=== PATIENT | male | born 1950 | race Caucasian/White ===

== ENCOUNTER 2016-06-12 09:38 | Inpatient (IN) | payer MEDICAID, OTHER ==
[~2016-06-12] VITALS: Ht 167.6 cm; Wt 81.6 kg
[2016-06-12 09:40] VITALS: BP 185/88; PULSE 79; RESP 16; TEMP 98.3; O2SAT 87
[2016-06-12 10:42] LABS: HEMATOCRIT 31.6 % (36-54); HEMOGLOBIN 10.8 g/dL (14.0-18.0); MEAN CORPUSCULAR HEMOGLOBIN 29 pg (27-31); MEAN CORPUSCULAR HGB CONC 34 % (32-36); MEAN CORPUSCULAR VOLUME 83 fL (79.0-98.0); PLATELET COUNT (AUTO) 410 K/uL (130-430); RED BLOOD CELL COUNT(AUTO) 3.79 MIL/uL (4.2-6.2); RED CELL DISTRIBUTION WIDTH 13.4 % (9.0-15.0); WHITE BLOOD COUNT (AUTO) 19.3 K/uL (4.8-10.8)
[2016-06-12 10:45] LABS: ABG TOTAL HEMOGLOBIN 11.6 G/dL (12.0-18.0); BLOOD GAS BASE EXCESS 1.1 mmol/L (-3.0-3.0); BLOOD GAS PH 7.433 (7.350-7.450)
[2016-06-12] MEDS ORDERED: ALBUTEROL SULFATE 0.083% 2.5 MG/3 ML VIAL.NEB INH ONE ×2 (10:45→12:00)
[2016-06-12 10:46] LABS: BLOOD GAS COHb% 0.4 % (0.5-1.5); BLOOD GAS HHB 17.2 % (0.0-6.0); BLOOD O2Hb% 81.9 % (94.0-97.0)
[2016-06-12 10:51] LABS: ANION GAP 5 (5-15); CALCIUM 8.2 mg/dL (8.4-11.0); CHLORIDE 100 mmol/L (98-107); CREATININE 1.11 mg/dL (0.55-1.30); GLUCOSE 347 mg/dL (70-99); POTASSIUM 3.6 mmol/L (3.5-5.1); SODIUM SERUM 133 mmol/L (136-145); UREA NITROGEN, BLOOD 14 mg/dL (8-21)
[2016-06-12 10:53] LABS: GFR AFRICAN AMERICAN 86 mL/min (>90); INR 0.9 (0.80-1.20)
[2016-06-12 10:58] LABS: BAND % (MANUAL) 19 % (0-6); BASOPHILS % (MANUAL) 0 % (0-2); EOSINOPHILS % (MANUAL) 0 % (0-7); LYMPHOCYTES % (MANUAL) 9 % (20-46); MONOCYTES % (MANUAL) 4 % (0-11)
[2016-06-12 11:07] LABS: ALANINE AMINOTRANSFERASE 30 U/L (12-78); ALBUMIN 2.9 g/dL (3.4-4.8); ASPARTATE AMINOTRANSFERASE 22 U/L (10-37); TOTAL BILIRUBIN 0.3 mg/dL (0.0-1.0); TOTAL PROTEIN, SERUM 7.4 g/dL (6.4-8.3)
[2016-06-12 11:11] LABS: ALCOHOL, BLOOD < 3 mg/dL (<10)
[2016-06-12 12:35] LABS: BILIRUBIN,URINE NEGATIVE (NEGATIVE); CLARITY/URINE CLEAR (CLEAR); COLOR,URINE YELLOW (YELLOW); GLUCOSE,URINE 3+ (NEGATIVE); KETONES,URINE NEGATIVE (NEGATIVE); LEUKOCYTE ESTERASE ,URINE NEGATIVE (NEGATIVE); NITRITE, URINE NEGATIVE (NEGATIVE); PH,URINE 5.5 (5.0-8.0); PROTEIN URINE NEGATIVE (NEGATIVE); UROBILINOGEN,URINE 0.2 (0.2-1.0)
[2016-06-12 12:44] LABS: BLOOD, URINE TRACE (NEGATIVE)
[2016-06-12 12:46] LABS: BARBITURATE, URINE NEGATIVE (NEG <=200); BENZODIAZEPINE, URINE NEGATIVE (NEG <=150); CANNABINOID, URINE NEGATIVE (NEG <=50); COCAINE, URINE NEGATIVE (NEG <=150); METHAMPHETAMINES SCREEN,URINE NEGATIVE (NEG <=500); OPIATE, URINE NEGATIVE (NEG <=100); PHENCYCLIDINE SCREEN,URINE NEGATIVE (NEG <=25); UR TRICYCLIC ANTIDEPRESSANTS NEGATIVE (NEG <=300); URINE AMPHETAMINE NEGATIVE (NEG <=500); URINE METHADONE NEGATIVE (NEG <=200); URINE OXYCODONE SCREEN NEGATIVE (NEG <=100); URINE PROPOXYPHENE SCREEN NEGATIVE (NEG <=300)
[2016-06-12 12:48] LABS: BACTERIA,URINE FEW /HPF (None Seen); RBC,URINE 0-3 /HPF (0-3); WBC,URINE 0-3 /HPF (0-3)
[2016-06-12 12:49] LABS: MUCUS,URINE None Seen /LPF (None Seen)
[2016-06-12] MEDS ORDERED: NACL 0.9% 1,000 ML IV ONE ×2 (13:00→13:15)
[2016-06-12 13:28] VITALS: BP 150/73; PULSE 115; RESP 18; TEMP 98.7; O2SAT 95
[2016-06-12] MEDS ORDERED: ASPIRIN 81 MG TAB.CHEW PO ONE (13:30)
[2016-06-12] MEDS ORDERED: ENOXAPARIN SODIUM 40 MG/0.4 ML SYRINGE SUBCUT ONE (13:30)
[2016-06-12] MEDS ORDERED: FLU VACC QS 2016-17(36MOS+)/PF 0.5 ML/SYR SYRINGE I.M. PRN (14:00)
[2016-06-12] MEDS ORDERED: PIPERACILLIN/TAZO 2.25G/DEX-IS 50 ML IV SCH (14:00)
[2016-06-12] MEDS ORDERED: DOCUSATE SODIUM 100 MG CAPSULE PO PRN (15:15)
[2016-06-12] MEDS ORDERED: LORazepam 2 MG/ML VIAL IVP PRN (15:15)
[2016-06-12] MEDS ORDERED: ACETAMINOPHEN 325 MG TABLET PO PRN (15:15)
[2016-06-12] MEDS ORDERED: ONDANSETRON HCL 4 MG/2 ML VIAL IVP PRN (15:15)
[2016-06-12] MEDS ORDERED: ZOLPIDEM TARTRATE 5 MG TABLET PO PRN (15:15)
[2016-06-12] MEDS ORDERED: POTASSIUM CHLORIDE 10 MEQ TAB.PRT.SR PO PRN (15:15)
[2016-06-12] MEDS ORDERED: MAGNESIUM SULFATE 50 ML IV PRN (15:15)
[2016-06-12] MEDS ORDERED: MORPHINE 2 MG/ML INJ. SYRINGE IVP PRN (15:15)
[2016-06-12] MEDS: IPRATROPIUM/ALBUTEROL SULFATE 3 ML AMPUL.NEB INH SCH ×2 (15:27→20:17)
[2016-06-12 15:36] VITALS: BP 150/73; PULSE 115
[2016-06-12] MEDS: NACL 0.9% 1,000 ML IV SCH (16:29)
[2016-06-12 16:32] VITALS: BP 144/76; PULSE 105; RESP 16; TEMP 98.5; O2SAT 94
[2016-06-12] MEDS: PIPERACILLIN/TAZO 3.375/DEX-IS 50 ML IV SCH ×2 (17:31→23:38)
[2016-06-12] MEDS ORDERED: LEVOFLOXACIN 500 MG/D5W 100 ML IV ONE (18:15)
[2016-06-12] MEDS: VANCOMYCIN HCL 1,250 MG in NS 250 ML IV SCH (18:20)
[2016-06-12 19:55] VITALS: BP 153/78; PULSE 97; RESP 18; TEMP 99; O2SAT 97
[2016-06-12] MEDS: LACTOBACILLUS RHAMNOSUS GG 1 CAP CAPSULE PO SCH (20:39)
[2016-06-12 23:56] VITALS: BP 150/87; PULSE 96; RESP 18; TEMP 99.2; O2SAT 92
[2016-06-13] MEDS: NACL 0.9% 1,000 ML IV SCH ×3 (01:30→14:35)
[2016-06-13 04:02] VITALS: BP 150/86; PULSE 96; RESP 20; TEMP 98.5; O2SAT 96
[2016-06-13] MEDS: VANCOMYCIN HCL 1,250 MG in NS 250 ML IV SCH ×2 (04:04→17:42)
[2016-06-13] MEDS: PIPERACILLIN/TAZO 3.375/DEX-IS 50 ML IV SCH (06:05)
[2016-06-13] MEDS: IPRATROPIUM/ALBUTEROL SULFATE 3 ML AMPUL.NEB INH SCH ×3 (07:01→21:08)
[2016-06-13 07:42] LABS: CALCIUM 8.4 mg/dL (8.4-11.0); CREATININE 1.18 mg/dL (0.55-1.30); POTASSIUM 4.1 mmol/L (3.5-5.1)
[2016-06-13 07:44] LABS: BASOPHILS % (AUTO) 0.1 % (0.0-2.0); HEMOGLOBIN 8.9 g/dL (14.0-18.0); LYMPHOCYTES % (AUTO) 4.7 % (20.5-51.5); MEAN CORPUSCULAR HEMOGLOBIN 28 pg (27-31); MEAN CORPUSCULAR HGB CONC 33 % (32-36); MEAN CORPUSCULAR VOLUME 83 fL (79.0-98.0); MONOCYTES # (AUTO) 1.6 K/uL (0.0-1.0); MONOCYTES % (AUTO) 7.4 % (1.7-9.3); NEUTROPHILS # (AUTO) 18.5 K/uL (1.8-7.7); PLATELET COUNT (AUTO) 362 K/uL (130-430); RED BLOOD CELL COUNT(AUTO) 3.23 MIL/uL (4.2-6.2); RED CELL DISTRIBUTION WIDTH 13.5 % (9.0-15.0); WHITE BLOOD COUNT (AUTO) 21.1 K/uL (4.8-10.8)
[2016-06-13 08:00] VITALS: BP 150/73; PULSE 83; RESP 16; TEMP 98.8; O2SAT 100
[2016-06-13] MEDS ORDERED: DEXTROSE 50% JECT 50 ML DISP.SYRIN IVP PRN (08:15)
[2016-06-13] MEDS ORDERED: NA PHOS,M-B/NA PHOS,DI-BA 118 ML (FLEET ENEMA) RC ONE (08:15)
[2016-06-13] MEDS: ASPIRIN 81 MG TAB.CHEW PO SCH (09:45)
[2016-06-13] MEDS: BISACODYL 5 MG TABLET.DR (DULCOLAX) PO SCH ×2 (09:45→09:47)
[2016-06-13] MEDS: POLYETHYLENE GLYCOL 3350, 17 GM/ POWD.PACK PO SCH ×2 (09:45→09:46)
[2016-06-13] MEDS: LACTOBACILLUS RHAMNOSUS GG 1 CAP CAPSULE PO SCH ×2 (09:45→20:48)
[2016-06-13] MEDS: ENOXAPARIN SODIUM 40 MG/0.4 ML SYRINGE SUBCUT SCH (09:45)
[2016-06-13] MEDS: LISINOPRIL 10 MG TABLET (PRINIVIL) PO SCH (09:45)
[2016-06-13] MEDS: INSULIN ASPART 100 UNITS/ML, 10 ML VIAL (NovoLOG) SUBCUT PRN ×4 (10:08→21:00)
[2016-06-13 10:19] LABS: NEUTROPHILS % (AUTO) 87.8 % (40.0-70.0)
[2016-06-13 11:14] VITALS: Ht 167.6 cm; Wt 81.6 kg
[2016-06-13 12:41] VITALS: BP 167/68; PULSE 86; RESP 20; TEMP 97.4; O2SAT 97
[2016-06-13] MEDS ORDERED: FUROSEMIDE 20 MG/2 ML VIAL IVP ONE (13:45)
[2016-06-13] MEDS: metroNIDAZOLE 500 mg/NS 100 ML IV SCH ×2 (14:35→22:06)
[2016-06-13 16:28] VITALS: BP 155/68; PULSE 79; RESP 18; TEMP 98; O2SAT 98
[2016-06-13 19:56] VITALS: BP 162/90; PULSE 90; RESP 18; TEMP 98.6; O2SAT 92
[2016-06-13] MEDS: LEVOFLOXACIN 500 MG/D5W 100 ML IV SCH (20:47)
[2016-06-14] MEDS ORDERED: METOPROLOL TARTRATE 50 MG TABLET PO ONE (00:15)
[2016-06-14 00:37] VITALS: BP 174/97; PULSE 92; RESP 20; TEMP 99.4; O2SAT 100
[2016-06-14] MEDS: VANCOMYCIN HCL 1,250 MG in NS 250 ML IV SCH (04:40)
[2016-06-14 04:54] VITALS: BP 155/82; PULSE 84; RESP 18; TEMP 98.2; O2SAT 93
[2016-06-14] MEDS: metroNIDAZOLE 500 mg/NS 100 ML IV SCH ×3 (06:32→21:36)
[2016-06-14 07:34] LABS: BASOPHILS % (AUTO) 0.2 % (0.0-2.0); CREATININE 1.03 mg/dL (0.55-1.30); EOSINOPHILS # (AUTO) 0.3 K/uL (0.0-0.4); EOSINOPHILS % (AUTO) 1.8 % (0.0-4.0); HEMOGLOBIN 9.1 g/dL (14.0-18.0); LYMPHOCYTES # (AUTO) 1.2 K/uL (1.0-5.5); LYMPHOCYTES % (AUTO) 7.1 % (20.5-51.5); MEAN CORPUSCULAR HEMOGLOBIN 28 pg (27-31); MEAN CORPUSCULAR HGB CONC 34 % (32-36); MEAN CORPUSCULAR VOLUME 84 fL (79.0-98.0); MONOCYTES # (AUTO) 1.3 K/uL (0.0-1.0); MONOCYTES % (AUTO) 8.2 % (1.7-9.3); NEUTROPHILS # (AUTO) 13.5 K/uL (1.8-7.7); NEUTROPHILS % (AUTO) 82.7 % (40.0-70.0); PLATELET COUNT (AUTO) 358 K/uL (130-430); POTASSIUM 4.1 mmol/L (3.5-5.1); RED BLOOD CELL COUNT(AUTO) 3.24 MIL/uL (4.2-6.2); RED CELL DISTRIBUTION WIDTH 13.7 % (9.0-15.0); WHITE BLOOD COUNT (AUTO) 16.3 K/uL (4.8-10.8)
[2016-06-14] MEDS: IPRATROPIUM/ALBUTEROL SULFATE 3 ML AMPUL.NEB INH SCH ×3 (07:55→23:41)
[2016-06-14 08:00] VITALS: BP 151/81; PULSE 92; RESP 18; TEMP 98.1; O2SAT 92
[2016-06-14 08:06] LABS: CALCIUM 8.3 mg/dL (8.4-11.0)
[2016-06-14] MEDS: ENOXAPARIN SODIUM 40 MG/0.4 ML SYRINGE SUBCUT SCH (09:30)
[2016-06-14] MEDS: POLYETHYLENE GLYCOL 3350, 17 GM/ POWD.PACK PO SCH (09:31)
[2016-06-14] MEDS: BISACODYL 5 MG TABLET.DR (DULCOLAX) PO SCH (09:31)
[2016-06-14] MEDS: ASPIRIN 81 MG TAB.CHEW PO SCH (09:31)
[2016-06-14] MEDS: METOPROLOL TARTRATE 50 MG TABLET PO SCH ×2 (09:32→20:48)
[2016-06-14] MEDS: LISINOPRIL 10 MG TABLET (PRINIVIL) PO SCH ×2 (09:32→20:47)
[2016-06-14] MEDS: LACTOBACILLUS RHAMNOSUS GG 1 CAP CAPSULE PO SCH ×2 (09:32→20:47)
[2016-06-14] MEDS: NACL 0.9% 1,000 ML IV SCH (09:35)
[2016-06-14] MEDS: INSULIN ASPART 100 UNITS/ML, 10 ML VIAL (NovoLOG) SUBCUT PRN ×2 (11:30→20:51)
[2016-06-14 12:40] VITALS: BP 174/94; PULSE 77; RESP 18; TEMP 97.9; O2SAT 91
[2016-06-14] MEDS: cloNIDine HCL 0.1 MG TABLET PO PRN (13:01)
[2016-06-14] MEDS ORDERED: FUROSEMIDE 20 MG/2 ML VIAL IVP ONE (14:45)
[2016-06-14 17:00] VITALS: BP 162/86; PULSE 81; RESP 19; TEMP 97.9; O2SAT 98
[2016-06-14 19:30] VITALS: BP_SYST 132; BP_SYST 162; BP_DIAS 79; BP_DIAS 90; PULSE 80; PULSE 84; RESP 18; RESP 20; TEMP 98; O2SAT 96
[2016-06-14] MEDS: QUEtiapine FUMARATE 25 MG TABLET PO SCH (20:48)
[2016-06-14] MEDS: LEVOFLOXACIN 500 MG/D5W 100 ML IV SCH (21:36)
[2016-06-15] VITALS (7 sets, daily range): BP systolic 148–165; BP diastolic 80–91; PULSE 80–92; RESP 14–19; TEMP 97.4–98.8; O2SAT 95–100
[2016-06-15] MEDS: metroNIDAZOLE 500 mg/NS 100 ML IV SCH ×3 (06:39→22:18)
[2016-06-15 07:23] LABS: BASOPHILS % (AUTO) 0.4 % (0.0-2.0); EOSINOPHILS # (AUTO) 0.3 K/uL (0.0-0.4); EOSINOPHILS % (AUTO) 2.9 % (0.0-4.0); HEMATOCRIT 28.6 % (36-54); HEMOGLOBIN 9.3 g/dL (14.0-18.0); LYMPHOCYTES # (AUTO) 1.1 K/uL (1.0-5.5); LYMPHOCYTES % (AUTO) 11.7 % (20.5-51.5); MEAN CORPUSCULAR HEMOGLOBIN 27 pg (27-31); MEAN CORPUSCULAR HGB CONC 32 % (32-36); MEAN CORPUSCULAR VOLUME 85 fL (79.0-98.0); MONOCYTES # (AUTO) 0.8 K/uL (0.0-1.0); MONOCYTES % (AUTO) 8.2 % (1.7-9.3); NEUTROPHILS # (AUTO) 7.6 K/uL (1.8-7.7); NEUTROPHILS % (AUTO) 76.8 % (40.0-70.0); PLATELET COUNT (AUTO) 382 K/uL (130-430); RED BLOOD CELL COUNT(AUTO) 3.38 MIL/uL (4.2-6.2); RED CELL DISTRIBUTION WIDTH 13.5 % (9.0-15.0); WHITE BLOOD COUNT (AUTO) 9.8 K/uL (4.8-10.8)
[2016-06-15] MEDS: IPRATROPIUM/ALBUTEROL SULFATE 3 ML AMPUL.NEB INH SCH ×3 (07:32→23:32)
[2016-06-15 07:35] LABS: CALCIUM 8.5 mg/dL (8.4-11.0); CREATININE 0.97 mg/dL (0.55-1.30); POTASSIUM 3.9 mmol/L (3.5-5.1)
[2016-06-15] MEDS: BISACODYL 5 MG TABLET.DR (DULCOLAX) PO SCH (08:19)
[2016-06-15] MEDS: ASPIRIN 81 MG TAB.CHEW PO SCH (08:19)
[2016-06-15] MEDS: LISINOPRIL 10 MG TABLET (PRINIVIL) PO SCH ×2 (08:20→20:48)
[2016-06-15] MEDS: QUEtiapine FUMARATE 25 MG TABLET PO SCH ×2 (08:20→20:47)
[2016-06-15] MEDS: METOPROLOL TARTRATE 50 MG TABLET PO SCH ×2 (08:20→20:48)
[2016-06-15] MEDS: ENOXAPARIN SODIUM 40 MG/0.4 ML SYRINGE SUBCUT SCH (08:21)
[2016-06-15] MEDS: POLYETHYLENE GLYCOL 3350, 17 GM/ POWD.PACK PO SCH (08:21)
[2016-06-15] MEDS: LACTOBACILLUS RHAMNOSUS GG 1 CAP CAPSULE PO SCH ×2 (08:21→20:47)
[2016-06-15] MEDS ORDERED: FUROSEMIDE 20 MG/2 ML VIAL IVP ONE (10:15)
[2016-06-15] MEDS: INSULIN ASPART 100 UNITS/ML, 10 ML VIAL (NovoLOG) SUBCUT PRN ×3 (11:13→21:11)
[2016-06-15] MEDS: LEVOFLOXACIN 500 MG/D5W 100 ML IV SCH (20:47)
[2016-06-16] VITALS (7 sets, daily range): BP systolic 153–185; BP diastolic 69–108; PULSE 64–87; RESP 16–22; TEMP 97.1–99; O2SAT 91–94
[2016-06-16] MEDS: cloNIDine HCL 0.1 MG TABLET PO PRN ×2 (03:09→16:31)
[2016-06-16] MEDS: metroNIDAZOLE 500 mg/NS 100 ML IV SCH ×3 (05:42→22:00)
[2016-06-16 06:47] LABS: CALCIUM 8.3 mg/dL (8.4-11.0); CREATININE 1.07 mg/dL (0.55-1.30); POTASSIUM 3.9 mmol/L (3.5-5.1)
[2016-06-16 06:48] LABS: BASOPHILS # (AUTO) 0.1 K/uL (0.0-0.2); BASOPHILS % (AUTO) 0.8 % (0.0-2.0); EOSINOPHILS # (AUTO) 0.3 K/uL (0.0-0.4); EOSINOPHILS % (AUTO) 4.1 % (0.0-4.0); HEMATOCRIT 27.9 % (36-54); HEMOGLOBIN 9.1 g/dL (14.0-18.0); LYMPHOCYTES # (AUTO) 1.4 K/uL (1.0-5.5); MEAN CORPUSCULAR HEMOGLOBIN 27 pg (27-31); MEAN CORPUSCULAR HGB CONC 33 % (32-36); MEAN CORPUSCULAR VOLUME 84 fL (79.0-98.0); MONOCYTES # (AUTO) 0.9 K/uL (0.0-1.0); MONOCYTES % (AUTO) 11.1 % (1.7-9.3); NEUTROPHILS # (AUTO) 5.5 K/uL (1.8-7.7); PLATELET COUNT (AUTO) 393 K/uL (130-430); RED BLOOD CELL COUNT(AUTO) 3.32 MIL/uL (4.2-6.2); RED CELL DISTRIBUTION WIDTH 13.8 % (9.0-15.0); WHITE BLOOD COUNT (AUTO) 8.2 K/uL (4.8-10.8)
[2016-06-16] MEDS: IPRATROPIUM/ALBUTEROL SULFATE 3 ML AMPUL.NEB INH SCH ×2 (07:00→15:00)
[2016-06-16] MEDS ORDERED: FUROSEMIDE 20 MG/2 ML VIAL IVP ONE (08:30)
[2016-06-16] MEDS: POLYETHYLENE GLYCOL 3350, 17 GM/ POWD.PACK PO SCH (08:31)
[2016-06-16] MEDS: LACTOBACILLUS RHAMNOSUS GG 1 CAP CAPSULE PO SCH ×2 (08:31→21:27)
[2016-06-16] MEDS: ENOXAPARIN SODIUM 40 MG/0.4 ML SYRINGE SUBCUT SCH ×3 (08:31→09:00)
[2016-06-16] MEDS: QUEtiapine FUMARATE 25 MG TABLET PO SCH ×2 (08:32→21:27)
[2016-06-16] MEDS: BISACODYL 5 MG TABLET.DR (DULCOLAX) PO SCH (08:32)
[2016-06-16] MEDS: LISINOPRIL 10 MG TABLET (PRINIVIL) PO SCH ×2 (08:32→21:28)
[2016-06-16] MEDS: ASPIRIN 81 MG TAB.CHEW PO SCH (08:32)
[2016-06-16] MEDS: METOPROLOL TARTRATE 50 MG TABLET PO SCH ×2 (08:33→21:28)
[2016-06-16] MEDS: INSULIN ASPART 100 UNITS/ML, 10 ML VIAL (NovoLOG) SUBCUT PRN ×2 (13:03→21:35)
[2016-06-16] MEDS: LEVOFLOXACIN 500 MG/D5W 100 ML IV SCH (21:27)
[2016-06-17 00:29] VITALS: BP 143/74; PULSE 74; RESP 16; TEMP 99.9; O2SAT 92
[2016-06-17 04:22] VITALS: BP 161/91; PULSE 69; RESP 22; TEMP 97.1; O2SAT 94
[2016-06-17] MEDS: metroNIDAZOLE 500 mg/NS 100 ML IV SCH ×3 (06:26→22:50)
[2016-06-17] MEDS: IPRATROPIUM/ALBUTEROL SULFATE 3 ML AMPUL.NEB INH SCH ×3 (07:17→20:03)
[2016-06-17 07:31] LABS: BASOPHILS # (AUTO) 0.1 K/uL (0.0-0.2); BASOPHILS % (AUTO) 0.7 % (0.0-2.0); EOSINOPHILS # (AUTO) 0.4 K/uL (0.0-0.4); EOSINOPHILS % (AUTO) 4.7 % (0.0-4.0); HEMATOCRIT 28.8 % (36-54); HEMOGLOBIN 9.3 g/dL (14.0-18.0); LYMPHOCYTES # (AUTO) 1.5 K/uL (1.0-5.5); LYMPHOCYTES % (AUTO) 16.4 % (20.5-51.5); MEAN CORPUSCULAR HEMOGLOBIN 27 pg (27-31); MEAN CORPUSCULAR HGB CONC 32 % (32-36); MEAN CORPUSCULAR VOLUME 85 fL (79.0-98.0); MONOCYTES # (AUTO) 0.9 K/uL (0.0-1.0); MONOCYTES % (AUTO) 10.4 % (1.7-9.3); NEUTROPHILS % (AUTO) 67.8 % (40.0-70.0); PLATELET COUNT (AUTO) 435 K/uL (130-430); RED BLOOD CELL COUNT(AUTO) 3.41 MIL/uL (4.2-6.2); RED CELL DISTRIBUTION WIDTH 13.8 % (9.0-15.0); WHITE BLOOD COUNT (AUTO) 8.9 K/uL (4.8-10.8)
[2016-06-17 07:32] LABS: CALCIUM 8.4 mg/dL (8.4-11.0); CREATININE 0.99 mg/dL (0.55-1.30); POTASSIUM 4.1 mmol/L (3.5-5.1)
[2016-06-17 08:00] VITALS: BP 162/85; PULSE 88; RESP 20; TEMP 98; O2SAT 95
[2016-06-17] MEDS: POLYETHYLENE GLYCOL 3350, 17 GM/ POWD.PACK PO SCH (10:05)
[2016-06-17] MEDS: BISACODYL 5 MG TABLET.DR (DULCOLAX) PO SCH (10:05)
[2016-06-17] MEDS: ENOXAPARIN SODIUM 40 MG/0.4 ML SYRINGE SUBCUT SCH (10:05)
[2016-06-17] MEDS: METOPROLOL TARTRATE 50 MG TABLET PO SCH ×2 (10:06→21:47)
[2016-06-17] MEDS: LACTOBACILLUS RHAMNOSUS GG 1 CAP CAPSULE PO SCH (10:06)
[2016-06-17] MEDS: LISINOPRIL 10 MG TABLET (PRINIVIL) PO SCH ×2 (10:07→21:48)
[2016-06-17] MEDS: QUEtiapine FUMARATE 25 MG TABLET PO SCH ×2 (10:07→21:47)
[2016-06-17] MEDS: ASPIRIN 81 MG TAB.CHEW PO SCH (10:07)
[2016-06-17] MEDS ORDERED: HYDROCHLOROTHIAZIDE 25 MG TABLET (HCTZ) PO ONE (10:45)
[2016-06-17] MEDS: cloNIDine HCL 0.1 MG TABLET PO PRN (12:03)
[2016-06-17] MEDS: INSULIN ASPART 100 UNITS/ML, 10 ML VIAL (NovoLOG) SUBCUT PRN ×3 (12:05→21:51)
[2016-06-17 12:30] VITALS: BP 165/75; PULSE 70; RESP 16; TEMP 97.8; O2SAT 99
[2016-06-17 15:33] VITALS: BP 140/74; PULSE 70; RESP 19; TEMP 97.6; O2SAT 96
[2016-06-17 19:45] VITALS: BP 150/79; PULSE 74; RESP 16; TEMP 97.2; O2SAT 96
[2016-06-17] MEDS: LEVOFLOXACIN 500 MG/D5W 100 ML IV SCH (21:51)
[2016-06-18 01:11] VITALS: BP 155/87; PULSE 75; RESP 17; TEMP 98.6; O2SAT 96
[2016-06-18 04:59] VITALS: BP 158/78; PULSE 66; RESP 17; TEMP 97; O2SAT 98
[2016-06-18] MEDS: metroNIDAZOLE 500 mg/NS 100 ML IV SCH (06:02)
[2016-06-18] MEDS: INSULIN ASPART 100 UNITS/ML, 10 ML VIAL (NovoLOG) SUBCUT PRN (06:13)
[2016-06-18] MEDS: IPRATROPIUM/ALBUTEROL SULFATE 3 ML AMPUL.NEB INH SCH (07:39)
[2016-06-18 08:00] VITALS: BP 147/73; PULSE 74; RESP 18; TEMP 98.3; O2SAT 98
[2016-06-18] MEDS: ASPIRIN 81 MG TAB.CHEW PO SCH (08:04)
[2016-06-18] MEDS: QUEtiapine FUMARATE 25 MG TABLET PO SCH (08:04)
[2016-06-18] MEDS: BISACODYL 5 MG TABLET.DR (DULCOLAX) PO SCH (08:04)
[2016-06-18] MEDS: METOPROLOL TARTRATE 50 MG TABLET PO SCH (08:06)
[2016-06-18] MEDS: POLYETHYLENE GLYCOL 3350, 17 GM/ POWD.PACK PO SCH (08:06)
[2016-06-18] MEDS: LISINOPRIL 10 MG TABLET (PRINIVIL) PO SCH (08:06)
[2016-06-18] MEDS: ENOXAPARIN SODIUM 40 MG/0.4 ML SYRINGE SUBCUT SCH (08:06)
[2016-06-18] MEDS ORDERED: HYDROCHLOROTHIAZIDE 25 MG TABLET (HCTZ) PO SCH (09:00)
[2016-06-18 12:05] VITALS: BP 140/66; PULSE 72; RESP 17; TEMP 98.1; O2SAT 99
[2016-06-18 12:46] VITALS: BP 147/73; PULSE 74; RESP 18; TEMP 98.3
== END 2016-06-18 14:20 | disposition home or self-care (01) | DRG 720 ==
LOC: SED 09:38 → STU 13:00 → SMU 06-15 14:00
PROVIDERS: ADMIT General Practice; ATTEND General Practice
DX: A41.9 Sepsis, unspecified organism (principal); J96.01 Acute respiratory failure with hypoxia; J69.0 Pneumonitis due to inhalation of food and vomit; G93.41 Metabolic encephalopathy; E11.65 Type 2 diabetes mellitus with hyperglycemia; K59.00 Constipation, unspecified; I10 Essential (primary) hypertension; E44.0 Moderate protein-calorie malnutrition; E87.1 Hypo-osmolality and hyponatremia; F29 Unspecified psychosis not due to a substance or known physiological condition; D64.9 Anemia, unspecified; Z59.0 Homelessness
CPT/HCPCS: 36415; 36600; 70450-TC; 71010; 71250-TC; 74000-TC; 80048; 80053; 80202-TC; 80307; 81000-TC; 82140-TC; 82803-TC; 82962; 83036; 83605; 83735-TC; 83880; 84439; 84484; 85007; 85025; 85027; 85610-TC; 87040-TC; 93005; 93306; 94640; 94760; 96365; 99285; G0482; J1650; J1815; J1940; J1956; J2060; J2543; J3370; J3490; J7030; J7050